=== PATIENT | female | born 1985 | race Caucasian/White ===

== ENCOUNTER 2021-05-05 06:03 | Emergency (ER) | payer SELFPAY ==
[~2021-05-05] VITALS: Ht 172.7 cm; Wt 65.5 kg
[2021-05-05 06:17] VITALS: BP 125/79
[2021-05-05] MEDS ORDERED: HYDR25CA PO (06:51)
--- NOTE | 2021-05-05 06:53 | PHYS DOC ---
Past History Past Medical History: No Pertinent History Past Surgical History: No Surgical History Alcohol Use: None Adult General Chief Complaint Chief Complaint: ANXIETY/PANIC ATTACK HPI HPI Patient is a 36-year-old female presenting for anxiety and panic attacks. Reports she has been going through increased stress primarily citing relationship with significant other. She is here with family as she is hoping mood and has increased stress being outside her home state of [place]. Reports having increased episodes of hyperventilation, shortness of breath, chest pain and at times feelings of being lightheaded which concerned her enough after event this morning prompting her to come in for evaluation. She is mostly concerned about her heart as she cites her sister required placement of pacemaker and defibrillator at a early age without any known medication/drug abuse or other known abnormalities. Patient has no personal medical history, does not take any medications on a daily basis, she eats well and exercises regularly. She has history of tobacco abuse, admits to increased frequency of alcohol consumption due to stress, admits to occasional marijuana use but no other illicit drug use. She has no history of passing out with physical activity, mother is at bedside and denies any known family medical history or congenital abnormalities Review of Systems Review of Systems Fourteen body systems of review of systems have been reviewed. See HPI for pe rtinent positives and negative responses, other briceno all other systems are negative, non-pertinent or non-contributory Allergies Allergies Allergies Coded Allergies Type Severity Reaction Last Updated Verified No Known Drug Allergies 05/05/21 No Physical Exam Physical Exam Constitutional: Well developed, well nourished, no acute distress, non-toxic appearance. HENT: Normocephalic, atraumatic, bilateral external ears normal, oropharynx moist, no oral exudates, nose normal. Eyes: PERRLA, EOMI, conjunctiva normal, no discharge. Neck: Normal range of motion, no tenderness, supple, no stridor. Cardiovascular: Heart rate regular, sinus rhythm, no murmurs rubs or gallops Lungs & Thorax: Bilateral breath sounds clear to auscultation Abdomen: Bowel sounds normal, soft, no tenderness, no masses, no pulsatile masses. Nonsurgical abdomen, no peritoneal signs Skin: Warm, dry, no erythema, no rash. Back: No tenderness, no CVA tenderness. Extremities: No tenderness, no cyanosis, no clubbing, ROM intact, no edema. Neurologic: Alert and oriented X 3, grossly normal motor & sensory function, no focal deficits noted. Psychologic: Anxious affect and mood Current Patient Data Vital Signs Vital Signs Date Time Temp Pulse Resp B/P (MAP) Pulse Ox O2 Delivery O2 Flow Rate FiO2 05/05/21 06:17 98.4 94 18 125/79 (94) 100 Room Air EKG EKG EKG ordered and interpreted by myself 0620 hrs. as sinus rhythm at 91 bpm, unremarkable intervals, no axis deviation, no acute ischemic findings, no STEMI Radiology/Procedures Radiology/Procedures [] Heart Score C/O Chest Pain: No HEART Score for Chest Pain: HEART Score for Chest Pain Response (Comments) Value History Slighlty/Non-Suspicious 0 ECG Normal 0 Age < 45 0 Risk Factors No Risk Factors 0 Total 0 Risk Factors: Risk Factors: DM, Current or recent (<one month) smoker, HTN, HLP, family histo ry of CAD, obesity. Risk Scores: Risk Factors: DM, Current or recent (<one month) smoker, HTN, HLP, family history of CAD, obesity. Course & Med Decision Making Course & Med Decision Making ABCs unremarkable. I discussed most likely diagnosis of panic/anxiety attack likely due to acute stressor from relationship troubles. I reviewed EKG that was grossly unremarkable and disclose potential for further diagnostic work-up that would include laboratory analysis and imaging but joint decision among all in room to defer. Reassurance provided. At present, I do not feel there is any indication for further diagnostic work-up in ER setting and/or need for hospitalization. I did do recommend that patient follows up with primary care provider in [place] when she gets back home to review ER visit today and discussed need for provocative cardiac testing and formal mental health evaluation as she might benefit from therapy and potential SSRI use. Strict return precautions were also discussed at length with good understanding by patient. Patient voiced understanding and agreement with the plan. Patient knows to come back for repeat evaluation if concerning signs or symptoms present prior to outpatient follow-up. Hemodynamically stable, ambulatory and well- appearing at time of disposition. Dragon Disclaimer Dragon Disclaimer This electronic medical record was generated, in whole or in part, using a voice recognition dictation system. Departure Departure: Impression: Primary Impression: Panic attack as reaction to stress Disposition: HOME / SELF CARE / HOMELESS Condition: STABLE Referrals: PCP,NO (PCP) Patient Instructions: Anxiety and Panic Attacks Additional Instructions: You were seen in the ED for evaluation for a likely panic attack. Anxiety and panic attacks are serious medical conditions with unfortunate effects on daily living. As disclosed, I have provided you with a prescription for hydroxyzine for use as needed for acute panic/anxiety events. I do still recommend that you contact your primary care provider when you get back to [place] to review ER visit today and need for potential provocative cardiac testing such as ec hocardiogram and potential recording device given your sisters cardiac history. It would also be briceno to discuss your anxiety and panic attacks if these are still occurring. If any concerning signs or symptoms present prior to outpatient follow-up please do not hesitate to come back for repeat evaluation. It was a pleasure to take care of you and I wish you the best going forward Scripts Hydroxyzine Pamoate (VISTARIL) 25 Mg Capsule 1 CAP PO TID for ANXIETY, #30 CAP 0 Refills Prov: SARAI LINDER DO 05/05/21 SARAI LINDER DO May 05, 2021 06:53
--- NOTE | 2021-05-05 07:02 | EKG ---
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
== END 2021-05-05 07:01 | disposition home or self-care (01) ==
LOC: ER 06:03
DX: F43.0 Acute stress reaction (principal); R42 Dizziness and giddiness
CPT/HCPCS: 93005; 99283